=== PATIENT | female | born 1935 | race Caucasian/White ===

== ENCOUNTER 2018-09-26 00:06 | Emergency (ER) | payer OTHER ==
[~2018-09-26] VITALS: Ht 154.9 cm; Wt 61.7 kg
[~2018-09-26 00:06] MED LIST: ASPI325 PO; CEPH250A PO; Carvedilol6.25 MG PO; ESTRTP VAG; HYDACE5 PO; HYDGUAL120 PO; LEVFLO500 PO; RXHYDGUAS PO; Simvastatin20 MG PO; TRIA50 PO; UNKNOWN BP MED; VALS80; Zofran4 MG PO
[2018-09-26] MEDS ORDERED: CEPH500 PO (01:08)
[2018-09-26] MEDS ORDERED: MAGOXI400 PO (20:17)
[2018-09-26] MEDS ORDERED: Vitamin D2000 UNIT PO (20:17)
[2018-09-26] MEDS ORDERED: VITAMIN D-32000 UNIT PO (20:18)
[2018-09-26] MEDS ORDERED: PROBIOTIC1 EAC1 PO (20:18)
[2018-09-26] MEDS ORDERED: ASCO500 PO (20:19)
== END 2018-09-26 01:30 | disposition home or self-care (01) ==
LOC: ER 00:06
DX: R07.89 Other chest pain (principal); J18.9 Pneumonia, unspecified organism; I10 Essential (primary) hypertension; Z79.899 Other long term (current) drug therapy; Z88.2 Allergy status to sulfonamides; Z88.5 Allergy status to narcotic agent; Z88.8 Allergy status to other drugs, medicaments and biological substances; W18.2XXA Fall in (into) shower or empty bathtub, initial encounter
CPT/HCPCS: 71046; 96372; 99283-25; J1885

== ENCOUNTER 2018-09-26 18:47 | Observation (INO) | payer OTHER ==
[~2018-09-26] VITALS: Ht 152.4 cm; Wt 58.1 kg
[~2018-09-26 18:47] MED LIST changes: +CEPH500 PO
[2018-09-26 20:06] LABS: BASOPHILS ABSOLUTE AUTO 0.05 K/mm3 (0.00-0.23); BASOPHILS PERCENT AUTO 1 % (0-2); EOSINOPHILS ABSOLUTE AUTO 0.04 K/mm3 (0.00-0.68); EOSINOPHILS PERCENT AUTO 1 % (0-6); Hematocrit 42.2 % (33.0-51.0); Hemoglobin 13.9 g/dL (11.5-16.0); IMMATURE GRAN ABSOLUTE AUTO 0.03 K/mm3 (0.00-0.10); IMMATURE GRAN PERCENT AUTO 0 % (0-1); LYMPHOCYTES ABSOLUTE AUTO 1.87 K/mm3 (0.84-5.20); LYMPHOCYTES PERCENT AUTO 22 % (21-46); MONOCYTES ABSOLUTE AUTO 0.34 K/mm3 (0.16-1.47); MONOCYTES PERCENT AUTO 4 % (4-13); Mean Corpuscular HGB 30.5 pg (26.0-34.0); Mean Corpuscular HGB Conc 32.9 g/dL (31.5-36.5); Mean Corpuscular Volume 93 fL (80-100); Mean Platelet Volume 10.3 fL (9.1-12.4); NEUTROPHILS ABSOLUTE AUTO 6.16 K/mm3 (1.96-9.15); NEUTROPHILS PERCENT AUTO 73 % (41-73); Platelet Count 247 K/mm3 (150-400); RDW Coefficient Variation 12.9 % (11.7-14.2); Red Blood Cell Count 4.56 M/mm3 (3.80-5.20); White Blood Cell Count 8.49 K/mm3 (4.00-11.30)
[2018-09-26] MEDS ORDERED: MAGOXI400 PO (20:17)
[2018-09-26] MEDS ORDERED: Vitamin D2000 UNIT PO (20:17)
[2018-09-26] MEDS ORDERED: PROBIOTIC1 EAC1 PO (20:18)
[2018-09-26] MEDS ORDERED: VITAMIN D-32000 UNIT PO (20:18)
[2018-09-26] MEDS ORDERED: ASCO500 PO (20:19)
[2018-09-26 20:27] LABS: Alanine Aminotransfer (ALT/SGP 19 U/L (12-78); Albumin, Blood 4.3 g/dL (3.4-5.0); Albumin/Globulin Ratio 1.1 (0.8-1.8); Alk Phos 59 U/L (50-136); Anion Gap 9 mmol/L (6-16); Aspartate Aminotrans (AST/SGOT 17 U/L (12-37); Bilirubin, Total 0.7 mg/dL (0.1-1.0); Blood Urea Nitrogen 18 mg/dL (8-24); Bun/Creatinine Ratio 21.9 (12.0-20.0); CO2, Blood 25 mmol/L (21-32); Calcium, Blood 9.6 mg/dL (8.5-10.1); Chloride, Blood 105 mmol/L (98-108); Creatinine, Blood 0.82 mg/dL (0.40-1.00); Globulin, Blood 3.9 g/dL (2.2-4.0); Glomerular Filtration Rate >60 (60-); Glucose, Blood 152 mg/dL (70-99); Potassium, Blood 3.7 mmol/L (3.5-5.5); Sodium, Blood 139 mmol/L (136-145); Total Protein, Blood 8.2 g/dL (6.4-8.2)
[2018-09-26 21:33] LABS: Source, Urine Clean Catch
[2018-09-26 21:35] LABS: Bilirubin, Urine Neg (Neg); Blood, Urine 2+ (Neg); Glucose Qualitative, Urine Neg (Neg); Ketones, Urine 3+ (Neg); Leukocyte Esterase, Urine Neg (Neg); Nitrite, Urine Neg (Neg); Protein, Urine 4+ (Neg); Urobilinogen, Urine NORM (Normal)
[2018-09-26 21:38] LABS: Appearance, Urine Clear (Clear); Color, Urine Yellow (P-Yellow)
[2018-09-26 21:47] LABS: Amorphous Light (0-Heavy); Bacteria Few /hpf; Squamous Epithelial Cells Rare /hpf (Few); White Blood Cells, Urine 0-2 /hpf (0-5)
--- NOTE | 2018-09-27 03:35 | NUR ---
PATIENT IS A NEW ADMIT FROM THE ED. ED HELD UNTIL SBP WAS BELOW 200'S AND DOWN TO 179 SBP. AXO X3 AND ONE ASSIST TRANSFER FROM [facility] TO BED. ON 3L O2 NC AND RA BASELINE. DENIES PAIN AND N/V. PATIENT ORIENTED TO ROOM AND CALL LIGHT SYSTEM. CALL LIGTH IN REACH. WILL CONTINUE TO MONITOR.
--- NOTE | 2018-09-27 03:37 | NUR ---
NS INFUSING AT 200 mL/HR X ONE BAG. IV AZITHRO STARTED. PATIENT REPORTS SHE IS READY TO SLEEP. CALL LIGHT IN REACH. WILL CONTINUE TO MONITOR.
--- NOTE | 2018-09-27 04:25 | NUR ---
SHIFT SUMMARY PATIENT IS A NEW ADMIT FROM THE ED. AXOX 3 AND ONE PERSON ASSIST TO [facility]. DENIES PAIN, SOB, AND N/V. ON 3L O2 NC AND RA BASELINE. PIV REMAINS INTACT. NS INFUSING AT 200 mL/HR X ONE BAG. IV ABX INFUSED. BLOOD PRESSURE IN ED WAS OVER 200 AND BROUGHT TO MEDICAL FLOOR SBP 179 AND 171 ON ADMIT. ED REPORTS GIVING LABETALOL 10 MG IV. PATIENT COOPERATIVE WITH CARE. CALL LIGHT IN REACH. BED IN LOWEST POSITION. WILL CONTINUE TO MONITOR UNTIL DAY SHIFT NURSE ASSUMES CARE.
--- NOTE | 2018-09-27 14:00 | NUR ---
DISCHARGE INSTRUCTIONS COMPLETED AND DISCUSSED WITH PT EXPRESSING UNDERSTANDING. DAUGHTER CALLED AND INFORMED OF DISCHARGE. HERE TO PICK PT UP. TO [facility] VIA W/C.
== END 2018-09-27 13:53 | disposition home or self-care (01) ==
LOC: ER 18:47 → MEDS 18:48
PROVIDERS: Physician Assistant; ADMIT Hospitalist
DX: R11.2 Nausea with vomiting, unspecified (principal); R10.9 Unspecified abdominal pain; J18.9 Pneumonia, unspecified organism; I10 Essential (primary) hypertension; E78.5 Hyperlipidemia, unspecified; Z85.3 Personal history of malignant neoplasm of breast; Z87.440 Personal history of urinary (tract) infections; Z79.899 Other long term (current) drug therapy; Z79.2 Long term (current) use of antibiotics; Z88.2 Allergy status to sulfonamides; Z88.5 Allergy status to narcotic agent; Z88.8 Allergy status to other drugs, medicaments and biological substances; Z88.1 Allergy status to other antibiotic agents
CPT/HCPCS: 36415; 80053; 81001; 83690; 84145; 85025; 87449; 96361; 96365; 96375; 96376; 99285-25; J0456; J0696; J1650; J1885; J2405; J2550; J7030; J7050

== ENCOUNTER 2020-04-17 09:36 | Emergency (ER) | payer OTHER ==
[~2020-04-17] VITALS: Ht 154.9 cm; Wt 60.8 kg
[~2020-04-17 09:36] MED LIST changes: +ASCO500 PO; +LIDOCAINE1 EACH TOP; +MAGOXI400 PO; +ONDA4ODT MM; +PROBIOTIC1 EAC1 PO; +Percocet 5-3251 EACH PO; +VITAMIN D-32000 UNIT PO; +Vitamin D2000 UNIT PO
[2020-04-17 10:16] LABS: BASOPHILS ABSOLUTE AUTO 0.04 K/mm3 (0.00-0.23); BASOPHILS PERCENT AUTO 1 % (0-2); EOSINOPHILS ABSOLUTE AUTO 0.09 K/mm3 (0.00-0.68); EOSINOPHILS PERCENT AUTO 2 % (0-6); Hematocrit 41.7 % (33.0-51.0); Hemoglobin 13.4 g/dL (11.5-16.0); IMMATURE GRAN ABSOLUTE AUTO 0.01 K/mm3 (0.00-0.10); IMMATURE GRAN PERCENT AUTO 0 % (0-1); LYMPHOCYTES ABSOLUTE AUTO 2.09 K/mm3 (0.84-5.20); LYMPHOCYTES PERCENT AUTO 40 % (21-46); MONOCYTES ABSOLUTE AUTO 0.42 K/mm3 (0.16-1.47); MONOCYTES PERCENT AUTO 8 % (4-13); Mean Corpuscular HGB Conc 32.1 g/dL (31.5-36.5); Mean Corpuscular Volume 93 fL (80-100); Mean Platelet Volume 10.1 fL (9.1-12.4); NEUTROPHILS ABSOLUTE AUTO 2.61 K/mm3 (1.96-9.15); NEUTROPHILS PERCENT AUTO 50 % (41-73); Platelet Count 216 K/mm3 (150-400); RDW Coefficient Variation 13.2 % (11.7-14.2); RDW Standard Deviation 45.1 fL (35.1-46.3); Red Blood Cell Count 4.47 M/mm3 (3.80-5.20); White Blood Cell Count 5.26 K/mm3 (4.00-11.30)
[2020-04-17] MEDS ORDERED: PRAV20 PO (10:25)
[2020-04-17] MEDS ORDERED: CEPH250A PO (10:26)
[2020-04-17 10:38] LABS: Albumin, Blood 3.8 g/dL (3.4-5.0); Albumin/Globulin Ratio 1.1 (0.8-1.8); Bilirubin, Total 0.6 mg/dL (0.1-1.0); Bun/Creatinine Ratio 17.9 (12.0-20.0); Calcium, Blood 9.5 mg/dL (8.5-10.1); Creatinine, Blood 0.95 mg/dL (0.40-1.00); Globulin, Blood 3.5 g/dL (2.2-4.0); Total Protein, Blood 7.3 g/dL (6.4-8.2)
[2020-04-17] MEDS ORDERED: Norvasc5 MG PO (10:49)
== END 2020-04-17 10:50 | disposition home or self-care (01) ==
LOC: ER 09:36
PROVIDERS: Emergency Medicine
DX: I10 Essential (primary) hypertension (principal); Z88.2 Allergy status to sulfonamides; Z88.1 Allergy status to other antibiotic agents; Z88.5 Allergy status to narcotic agent; Z79.899 Other long term (current) drug therapy
CPT/HCPCS: 36415; 71045; 80053; 85025; 93005; 93010; 99283-25